=== PATIENT | female | born 1945 | race Caucasian/White ===

== ENCOUNTER 2016-11-26 09:18 | Outpatient (CLI) | payer OTHER | END 2016-11-26 19:59 | disposition home or self-care (01) | LOC: SMA 09:18 | PROVIDERS: ATTEND Family Medicine | DX: Z12.31 Encounter for screening mammogram for malignant neoplasm of breast (principal) | CPT/HCPCS: 77067; G0202 ==

== ENCOUNTER 2018-12-29 08:36 | Outpatient (CLI) | payer OTHER | END 2018-12-29 20:42 | disposition home or self-care (01) | LOC: SMA 08:36 | PROVIDERS: ATTEND Physician Assistant Medical | DX: Z12.31 Encounter for screening mammogram for malignant neoplasm of breast (principal) | CPT/HCPCS: 77067 ==

== ENCOUNTER 2020-01-30 08:18 | Outpatient (CLI) | payer OTHER | END 2020-01-30 20:02 | disposition home or self-care (01) | LOC: SMA 08:18 | PROVIDERS: ATTEND Family Medicine | DX: Z12.31 Encounter for screening mammogram for malignant neoplasm of breast (principal); N64.89 Other specified disorders of breast | CPT/HCPCS: 77067 ==